=== PATIENT | male | born 1945 | race Caucasian/White ===

== ENCOUNTER → 2019-03-04 | Outpatient (CLI) | payer OTHER ==
[2019-03-04 09:42] LABS: URINE BILIRUBIN NEGATIVE (Negative); URINE BLOOD NEGATIVE (Negative); URINE CLARITY CLEAR; URINE COLOR YELLOW; URINE GLUCOSE-RANDOM* NEGATIVE (Negative); URINE KETONES NEGATIVE (Negative); URINE LEUKOCYTES NEGATIVE (Negative); URINE NITRITE NEGATIVE (Negative); URINE PROTEIN (DIPSTICK) NEGATIVE (Negative)
[2019-03-04 10:00] LABS: CALCIUM 9.2 mg/dL (8.5-10.1); CREATININE 0.9 mg/dL (0.7-1.3); POTASSIUM 4.3 mmol/L (3.5-5.1); TOTAL BILIRUBIN 0.5 mg/dL (<0.1-1.0); TOTAL PROTEIN 8.1 g/dL (6.4-8.2)
--- NOTE | 2019-03-10 22:37 | PFR/MVV ---
[facility] [place] [address] PULMONARY FUNCTION MVV/REPORT Name: KALYN MARTIN Room #: [facility]#: [id number] Admission: 03/04/19 Attend Phys: Brad Rodrigez MD Discharge: Date of : 47 Report #: [id number] THIS REPORT FOR: //name// >> SPIROMETRY: (BTPS) Height: 72 in cm Weight: 228 lbs kg Exam Date: 03/04/19 PRE-RX POST-RX PRED BEST %PRED BEST %PRED %CHG FVC LITERS . 4.61 . 4.61 . 100 . 4.90 . 106 . 6 FEV1 LITERS . 3.06 . 1.91 . 62 . 2.15 . 70 . 13 FEV1/FVC % . 67 . 41 . 62 . 44 . 65 . 6 NSV65-75% L/Sec . 2.66 . 0.50 . 19 . 0.71 . 27 . 43 PEF L/SEC . 8.67 . 3.63 . 42 . 4.16 . 48 . 15 FEF50/FIF50 UNITLESS . <1.00 . . . 0.69 . . MVV L/Min . 132 . 46 . 35 f 1/Min . . 70 . >> LUNG VOLUMES: (BTPS) PRE-RX POST-RX PRED AVG %PRED AVG %PRED %CHG VC Liters . 4.61 . 4.61 . 100 . . . TLC Liters . 6.96 . 7.13 . 102 . . . RV Liters . 2.71 . 2.51 . 93 . . . RV/TLC % . 41 . 35 . 85 . . . FRC PL Liters . 3.68 . 3.97 . 108 . . . FRC N2 Liters . 3.68 . . . . . ERV Liters . 1.58 . 1.45 . 92 . . . IC Liters . 3.16 . 2.69 . 85 . . . >> DIFFUSION: DLCO ml/Min/mmHg . . . . . . DL Lara ml/Min/mmHg . . . . . . DLCO/VA ml/Min/mmHg . . . . . . VA Liters . . . . . . COMMENTS: COMMENTS: >> RESISTANCE: [facility] [address] [place] [address] PULMONARY FUNCTION MVV/REPORT Name: KALYN MARTIN Room #: [facility] Mack#: [id number] Admission: 03/04/19 Attend Phys: Brad Rodrigez MD Discharge: Date of : 47 Report #: [id number] PRE-RX PRED AVG %PRED Raw Total cmH20/L/Sec . . 16.29 . Raw Insp cmH20/L/Sec . . 27.52 . Raw Exp cmH20/L/Sec . . 26.84 . Raw cmH20/L/Sec . 1.21 . 23.12 . 1913 Gaw L/Sec/cmH20 . 0.884 . 0.043 . 5 sRaw cmH20 Sec . 4.45 . 83.38 . 1873 sGaw l/cmH20 Sec . 0.225 . 0.012 . 5 Vtq Liters . . 3.61 . # = OUTSIDE 95% CONFIDENCE INTERVAL CALIBRATION: PRED: 3.00 ACTUAL: EXP 3.01 INSP 3.02 [facility]-10[facility]06 [place] [id number] >> INTERPRETATION/IMPRESSION: CC: Brad Rodrigez PULMONARY FUNCTION STUDIES: FEV1 is 1.91 liters (62%), FVC is 4.61 liters (100%), FEV1/FVC ratio is 41%. Post-bronchodilator therapy with significant response to treatment. FEV1 increased by 13%. LUNG VOLUMES: Total lung capacity 7.13 liters (102%). RV is 2.51 liters (93%). Diffusing capacity is not completed. IMPRESSION: Pulmonary function studies are consistent with a moderate obstructive airflow defect with a significant response to bronchodilator therapy. <ELECTRONICALLY SIGNED> By: Ayden Davila MD 03/10/19 2237 Ayden Davila MD /nt
== END ==
LOC: PUL 09:12
PROVIDERS: Orthopaedic Surgery
DX: C34.90 Malignant neoplasm of unspecified part of unspecified bronchus or lung (principal); E11.9 Type 2 diabetes mellitus without complications